=== PATIENT | male | born 1980 | race Caucasian/White ===

== ENCOUNTER 2018-10-30 20:32 | Emergency (ER) | payer MEDICAID, SELFPAY ==
[2018-10-30 20:33] VITALS: BP 122/76; PULSE 74; RESP 16; TEMP 36.8; O2SAT 98; BMI 21.2
--- NOTE | 2018-10-30 21:48 | ED.RN ---
PT APPROACHES TRIAGE DESK STATES PAIN AND CRAMPING HAVE SUBSIDED SO HE WISHES TO GO HOME.
== END 2018-10-30 22:44 | disposition left against medical advice (07) ==
LOC: ED 22:34
PROVIDERS: Emergency Provider Emergency Medicine
DX: R25.2 Cramp and spasm (principal); Z53.21 Procedure and treatment not carried out due to patient leaving prior to being seen by health care provider